=== PATIENT | female | born 1960 | race Hispanic/Latino ===

== ENCOUNTER 2017-02-24 16:55 | Emergency (ER) | payer OTHER ==
[~2017-02-24 16:55] MED LIST: ATOR40TA69 PO; GLYB5TAB8 PO; INSNOV SQ; METF10004 PO; MONT10TA21 PO; OMEP20TA2 PO; SERT100T PO
== END 2017-02-24 17:26 | disposition home or self-care (01) ==
LOC: EDH 16:55
DX: M77.9 Enthesopathy, unspecified (principal); E11.9 Type 2 diabetes mellitus without complications; E78.5 Hyperlipidemia, unspecified; Z88.6 Allergy status to analgesic agent
CPT/HCPCS: 99281

== ENCOUNTER 2017-11-24 09:34 | Emergency (ER) | payer OTHER ==
[~2017-11-24 09:34] MED LIST changes: +METF-446 PO; -METF10004 PO
[2017-11-24 09:57] LABS: BASOPHILS % (AUTO) 0.9 % (0.0-5.0); EOSINOPHILS % (AUTO) 0.9 % (0.0-8.0); HEMATOCRIT 37.8 % (36-48); LYMPHOCYTES % (AUTO) 44.5 % (21.0-51.0); MEAN CORPUSCULAR HEMOGLOBIN 27.1 pg (27.0-33.0); MEAN CORPUSCULAR HGB CONC 33.3 g/dL (32.0-36.0); MEAN CORPUSCULAR VOLUME 81.5 fL (79-99); MONOCYTES % (AUTO) 6.9 % (3.0-13.0); NEUTROPHILS % (AUTO) 46.8 % (40.0-77.0); PLATELET COUNT (AUTO) 261 K/uL (130-400); RED BLOOD CELL COUNT(AUTO) 4.64 MIL/uL (4.00-5.50); RED CELL DISTRIBUTION WIDTH 14.6 % (11.0-15.5); WHITE BLOOD COUNT (AUTO) 10.7 K/uL (4.8-10.8)
[2017-11-24 10:06] LABS: CREATININE 0.8 mg/dL (0.5-1.5); POTASSIUM 4.8 mmol/L (3.5-5.1)
[2017-11-24 10:10] LABS: ALBUMIN 3.3 g/dL (3.5-5.0); BILIRUBIN,TOTAL 0.3 mg/dL (0.2-1.0); TOTAL PROTEIN, SERUM 7.9 g/dL (6.0-8.3)
[2017-11-24] MEDS ORDERED: MAGNESIUM 2GM PREMIX 50ML 50 ML IV ONE (13:43)
== END 2017-11-24 16:02 | disposition home or self-care (01) ==
LOC: EDH 09:34
DX: R07.9 Chest pain, unspecified (principal); E83.42 Hypomagnesemia; E78.5 Hyperlipidemia, unspecified; E11.9 Type 2 diabetes mellitus without complications; I25.10 Atherosclerotic heart disease of native coronary artery without angina pectoris; E66.9 Obesity, unspecified; Z68.41 Body mass index [BMI] 40.0-44.9, adult; Z88.6 Allergy status to analgesic agent; Z90.49 Acquired absence of other specified parts of digestive tract; Z90.710 Acquired absence of both cervix and uterus; Z98.890 Other specified postprocedural states
CPT/HCPCS: 36415; 71045; 80053; 83735; 84484; 85025; 85378; 93005; 93970; 96365; 96366; 99291; J3475

== ENCOUNTER 2018-09-12 14:44 | Emergency (ER) | payer OTHER ==
[2018-09-12 15:06] LABS: APPEARANCE,URINE Clear (CLEAR); BILIRUBIN,URINE Negative (NEGATIVE); COLOR,URINE Yellow (YELLOW); GLUCOSE, URINE (UA) Negative (NEGATIVE); KETONES,URINE Negative (NEGATIVE); LEUKOCYTE ESTERASE ,URINE Trace (NEGATIVE); NITRATE,URINE Negative (NEGATIVE); OCCULT BLOOD,URINE Negative (NEGATIVE); PH,URINE 5.5 (5.0-8.0); PROTEIN,URINE Negative (NEGATIVE)
[2018-09-12] MEDS ORDERED: ONDANSETRON HCL 4 MG/2 ML VIAL ONE (15:08)
[2018-09-12] MEDS ORDERED: SODIUM CHLORIDE 0.9% 1000ML 1,000 ML IV ONE (15:08)
[2018-09-12] MEDS ORDERED: KETOROLAC TROMETHAMINE 30MG/ML ONE (15:09)
[2018-09-12 15:12] LABS: BASOPHILS % (AUTO) 0.8 % (0.0-5.0); EOSINOPHILS % (AUTO) 0.5 % (0.0-8.0); HEMATOCRIT 42.4 % (36-48); LYMPHOCYTES % (AUTO) 33.9 % (21.0-51.0); MEAN CORPUSCULAR HEMOGLOBIN 26.2 pg (27.0-33.0); MEAN CORPUSCULAR HGB CONC 33.2 g/dL (32.0-36.0); MEAN CORPUSCULAR VOLUME 78.9 fL (79-99); MONOCYTES % (AUTO) 6.3 % (3.0-13.0); NEUTROPHILS % (AUTO) 58.5 % (40.0-77.0); NUCLEATED RED BLOOD CELLS 0.1 % (0.0-0.19); PLATELET COUNT (AUTO) 212 K/uL (130-400); RED BLOOD CELL COUNT(AUTO) 5.37 MIL/uL (4.00-5.50); RED CELL DISTRIBUTION WIDTH 16.4 % (11.0-15.5); WHITE BLOOD COUNT (AUTO) 11.7 K/uL (4.8-10.8)
[2018-09-12 15:22] LABS: BACTERIA,URINE Few /HPF (None Seen); RBC,URINE 0-1 /HPF (0-1); SQUAMOUS EPITHELIAL CELL,UR Few /HPF (0-2)
[2018-09-12 15:24] LABS: CREATININE 0.9 mg/dL (0.5-1.5); POTASSIUM 4.1 mmol/L (3.5-5.1)
[2018-09-12 15:28] LABS: ALBUMIN 3.7 g/dL (3.5-5.0); BILIRUBIN,TOTAL 0.4 mg/dL (0.2-1.0)
[2018-09-12] MEDS ORDERED: HYOSCYAMINE SULFATE 0.125 MG TAB.SUBL SL ONE (16:05)
[2018-09-12] MEDS ORDERED: LEVOFLOXACIN 500 MG TABLET ONE (16:10)
== END 2018-09-12 17:50 | disposition home or self-care (01) ==
LOC: EDH 14:44
DX: A09 Infectious gastroenteritis and colitis, unspecified (principal); N39.0 Urinary tract infection, site not specified; E86.0 Dehydration; E11.65 Type 2 diabetes mellitus with hyperglycemia; E78.5 Hyperlipidemia, unspecified; I25.10 Atherosclerotic heart disease of native coronary artery without angina pectoris; Z79.4 Long term (current) use of insulin; Z88.6 Allergy status to analgesic agent
CPT/HCPCS: 36415; 71045; 74176; 80053; 81001; 82150; 82550; 83690; 84484; 85025; 87088; 93005; 96361; 96374; 96375; 99285; J1885; J2405; J7030

== ENCOUNTER 2021-11-18 16:35 | Emergency (ER) | payer OTHER ==
[~2021-11-18] VITALS: Ht 152.4 cm; Wt 113.4 kg
[2021-11-18 17:16] LABS: BASOPHILS % (AUTO) 0.2 % (0.0-5.0); EOSINOPHILS % (AUTO) 0.1 % (0.0-8.0); HEMATOCRIT 37.6 % (36-48); LYMPHOCYTES % (AUTO) 31.2 % (21.0-51.0); MEAN CORPUSCULAR HEMOGLOBIN 25.2 pg (27.0-33.0); MEAN CORPUSCULAR HGB CONC 31.6 g/dL (32.0-36.0); MEAN CORPUSCULAR VOLUME 79.7 fL (79-99); MONOCYTES % (AUTO) 8.1 % (3.0-13.0); NEUTROPHILS % (AUTO) 59.8 % (40.0-77.0); PLATELET COUNT (AUTO) 207 K/uL (130-400); RED BLOOD CELL COUNT(AUTO) 4.72 MIL/uL (4.00-5.50); RED CELL DISTRIBUTION WIDTH 15.9 % (11.0-15.5); WHITE BLOOD COUNT (AUTO) 9.3 K/uL (4.8-10.8)
[2021-11-18 17:28] LABS: INR 0.96 (0.85-1.15); PROTHROMBIN TIME 10.5 SEC (9.6-11.6)
[2021-11-18 17:31] LABS: TOTAL PROTEIN, SERUM 7.3 g/dL (6.0-8.3)
[2021-11-18 17:49] LABS: B-TYPE NATRIURETIC PEPTIDE 30 pg/mL (0-100)
[2021-11-18] MEDS ORDERED: LEVEMIR SQ (20:55)
[2021-11-18] MEDS ORDERED: LISINOPRIL PO (20:55)
[2021-11-18] MEDS ORDERED: AEC81 PO (20:55)
[2021-11-18] MEDS ORDERED: NOVOLOG SQ (20:55)
[2021-11-18] MEDS ORDERED: JANUMET PO (20:55)
[2021-11-18] MEDS ORDERED: IBUP-1493 PO (22:18)
[2021-11-18 22:54] VITALS: BP 116/56
== END 2021-11-18 23:01 | disposition home or self-care (01) ==
LOC: EDH 16:35
DX: R07.89 Other chest pain (principal); R42 Dizziness and giddiness; R53.1 Weakness; E11.9 Type 2 diabetes mellitus without complications; E78.00 Pure hypercholesterolemia, unspecified; I10 Essential (primary) hypertension; I25.10 Atherosclerotic heart disease of native coronary artery without angina pectoris; Z88.5 Allergy status to narcotic agent; Z79.4 Long term (current) use of insulin; Z79.82 Long term (current) use of aspirin; Z79.899 Other long term (current) drug therapy
CPT/HCPCS: 36415; 71045; 80053; 82948; 83880; 84484; 85025; 85378; 85610; 93005

== ENCOUNTER 2024-07-03 08:22 | Inpatient (IN) | payer OTHER ==
[~2024-07-03] VITALS: Ht 152.4 cm; Wt 118.4 kg
[~2024-07-03 08:22] MED LIST changes: +AEC81 PO; +IBUP-1493 PO; +JANUMET PO; +LEVEMIR SQ; +LISINOPRIL PO; +MONT-47 PO; -MONT10TA21 PO; +NOVOLOG SQ
[2024-07-03] MEDS: 0.9%NACL 1000ML 1,000 ML IV ONE (08:29)
[2024-07-03] MEDS: acetaMINOPHEN 500 MG TABLET PO ONE (08:30)
--- NOTE | 2024-07-03 08:45 | ERN ---
General Chief Complaint: Flank Pain Stated Complaint: BILATERAL FLANK PAIN, FREQUENCY Time Seen by MD: 08:23 Source: patient History of Present Illness Initial Comments Patient is a 63-year-old female coming in complaining of lower back pain. States that she was diagnosed with a UTI last week has been taking medication from [place]. States that now she feels as if the UTI as extending to her lower back. She also states that she has been having fever and chills Allergies: Coded Allergies: codeine (Unverified Allergy, Unknown, 04/22/16) Home Meds Active Scripts Ibuprofen (Motrin/Advil) 800 Mg Tab, 800 MG PO TIDP PRN for PAIN, #30 TAB Prov:SWATI MUJICA MD 11/18/21 Reported Medications [Novolog] No Conflict Check, SQ 11/18/21 [Levemir] No Conflict Check, SQ 11/18/21 [Janumet] No Conflict Check, PO 11/18/21 Aspirin (ASPIRIN 81 MG ECTAB) 81 Mg Ectab, 81 MG PO DAILY, TAB.EC 11/18/21 [Lisinopril] No Conflict Check, PO 11/18/21 Montelukast Sodium (Singulair) 10 Mg Tablet, 10 MG PO DAILY, TAB 04/22/16 Sertraline HCl (Zoloft) 100 Mg Tablet, 100 MG PO DAILY, TAB 04/22/16 Atorvastatin Calcium (LIPITOR) 40 Mg Tablet, 40 MG PO AM, TAB 04/22/16 Omeprazole Magnesium (Prilosec Otc) 20 Mg Tablet.dr, 20 MG PO DAILY, TAB 04/22/16 Insulin Aspart (Novolog) 100 Units/Ml Inj, 20 UNITS SQ BID, ML 04/22/16 Glyburide (Glyburide) 5 Mg Tablet, 5 MG PO BID, TAB 04/22/16 Metformin HCl (Metformin HCl) 1,000 Mg Tablet, 1000 MG PO BID, TAB 04/22/16 Past Medical History Past Medical History: Diabetes-Type II Past Surgical History: Hysterectomy, Family History Family History: CAD, HTN Social History Social History: Negative, Lives with family ROS Dictation CONSTITUTIONAL: No chills, fever, no weakness, no diaphoresis, malaise. HEAD/FACE: No signs of trauma. EENT: No eye pain, no blurred vision, no tearing, no double vision, no ear candice n, no ear discharge, no nose pain, no nasal congestion, no throat pain, no throat swelling, no mouth pain. RESPIRATORY: No cough, no orthopnea, no SOB, no stridor, no wheezing. CARDIOVASCULAR: No chest pain, no edema, no palpitations, no syncope. GASTROINTESTINAL/ABDOMINAL: No abdominal pain, no constipation, no diarrhea, no nausea, no vomiting. GENITOURINARY: No abnormal discharge, no dysuria, no frequent urination, no hematuria. No complaints of pain in the genitals. MUSCULOSKELETAL: back pain, no gout, no joint pain, no joint swelling, no muscle pain, no muscle stiffness, no neck pain. INTEGUMENTARY: No change in color, no change in hair/nails, no dryness, no lesion, no lumps, no rash. NEUROLOGICAL/PSYCH: No anxiety, not depressed, no emotional problem, no headache, no numbness, no pre-existing deficit, no history of seizures, no tremors, no weakness. HEMATOLOGIC/LYMPHATIC: Not anemic, no history of blood clots, no apparent bleeding, no bruising, glands not swollen. All Systems Negative, Except as Noted. Physical Exam Physical Exam Dictation VITAL SIGNS: Reviewed. GENERAL APPEARANCE: Alert, oriented x3, no acute distress, obese. HEAD AND FACE: Non-traumatic. EYES: PERRL, pink conjunctivas, eyelid no trauma, anterior chamber clear. EARS: Pinnas intact and no signs of trauma or erythema. Ear canals clear and no discharge. TMs no erythema. NOSE: No discharge, no bleeding. OROPHARYNX: Mouth normal, teeth no caries, tongue pink. Pharynx clear, no e rythema. Tonsils no exudates, no abscesses noted. Mucous membrane moist. NECK: Supple, non-tender, no thyromegaly, no masses, no JVD, no bruits. BREAST: Deferred. CHEST: No tenderness, no crepitus, no paradoxical movement, no retractions. LUNGS: Clear, well-ventilated, symmetric, no rales, no wheezing, no rhonchi, no stridor, good breath sounds bilaterally. HEART: Regular rate, regular rhythm, no murmur, no gallops. VASCULAR: No peripheral edema. ABDOMEN: Soft, positive bowel sounds, nondistended, no guarding, nontender, no rebound, no masses no hepatomegaly, no splenomegaly, no Monroe's sign, no hernias. Bilateral CVA angle tenderness RECTAL: Deferred. GENITAL: Deferred. NEUROLOGICAL: Normal speech, gross motor function intact, gross sensory function intact. MUSCULOSKELETAL: Neck nontender, full range of motion, back nontender, full range of motion. EXTREMITIES: Nontender, full range of motion. SKIN: Color pink, dry, no turgor, no rash, no lacerations, no abrasions, no contusions. LYMPHATICS: Deferred. Results Laboratory and Microbiology Lab and Micro Result Laboratory Tests Test 07/03/24 08:50 07/03/24 10:28 White Blood Count 18.0 K/uL (4.8-10.8) H Red Blood Count 5.22 MIL/uL (4.00-5.50) Hemoglobin 12.9 g/dL (12.0-16.0) Hematocrit 41.2 % (36-48) Mean Corpuscular Volume 78.9 fL (79-99) L Mean Corpuscular Hemoglobin 24.7 pg (27.0-33.0) L Mean Corpuscular Hemoglobin Concent 31.3 g/dL (32.0-36.0) L Red Cell Distribution Width 15.7 % (11.0-15.5) H Platelet Count 260 K/uL (130-400) Mean Platelet Volume 11.3 fL (7.5-10.5) H Immature Granulocyte % (Auto) 0.9 % (0-1) Neutrophils (%) (Auto) 84.7 % (40.0-77.0) H Lymphocytes (%) (Auto) 6.1 % (21.0-51.0) L Monocytes (%) (Auto) 7.8 % (3.0-13.0) Eosinophils (%) (Auto) 0.3 % (0.0-8.0) Basophils (%) (Auto) 0.2 % (0.0-5.0) Neutrophils # (Auto) 15.2 K/uL (1.8-7.7) H Lymphocytes # (Auto) 1.1 K/uL (1.0-4.8) Monocytes # (Auto) 1.4 K/uL (0.1-1.0) H Eosinophils # (Auto) 0.05 K/uL (0.00-0.70) Basophils # (Auto) 0.03 K/uL (0.00-0.20) Absolute Immature Granulocyte (auto 0.16 K/uL (0-1) Nucleated Red Blood Cells 0.0 % (0.0-0.19) White Cell Morphology Comment See comments Red Blood Cell Morphology See comments Sodium Level 134 mmol/L (136-145) L Potassium Level 4.3 mmol/L (3.5-5.1) Chloride Level 97 mmol/L (101-111) L Carbon Dioxide Level 30 mmol/L (21-32) Blood Urea Nitrogen 12 mg/dL (7-18) Creatinine 1.2 mg/dL (0.5-1.0) H Glomerular Filtration Rate Calc 52 mL/min (>90) Random Glucose 354 mg/dL (70-105) H Lactic Acid Level 2.8 mmol/L (0.8-2.5) H Total Calcium 8.7 mg/dL (8.5-10.1) Total Creatine Kinase 46 U/L (21-232) # Troponin I High Sensitivity 4 ng/L (4-50) Urine Color YELLOW (YELLOW) Urine Appearance CLOUDY (CLEAR) H Urine pH 7.0 (5.0-8.0) Urine Specific [place] 1.021 (1.001-1.031) Urine Protein 50 mg/dL (NEGATIVE) H Urine Glucose (UA) >=1000 mg/dL (NEGATIVE) H Urine Ketones 20 mg/dL (NEGATIVE) H Urine Occult Blood SMALL (NEGATIVE) H Urine Nitrate 2+ (NEGATIVE) H Urine Bilirubin NEGATIVE mg/dL (NEGATIVE) Urine Urobilinogen 4.0 mg/dL (0.2-1.0) H Urine Leukocyte Esterase 500 Thomas/uL (NEGATIVE) H Urine RBC 11-25 /HPF (0-1) H Urine WBC TNTC /HPF (0-1) H Urine WBC Clumps (Auto) MOD /HPF (0-1) Urine Squamous Epithelial Cells FEW /HPF (0-2) Urine Bacteria MANY /HPF (None Seen) Urine Hyaline Casts 2-5 /LPF (0-1 /LPF) H Labs Reviewed?: Yes EKG/XRAY/US/CT/MRI CT Scan Comment [facility] [address] [place] [address] IMAGING REPORT Signed PATIENT: RADHA WASSERMAN MR#: [id number] : 1960 SEX: F AGE: 63 LOCATION: [facility] ORDER 6 STATUS: REG ER REPORT#: [id number] SERVICE 5 REASON: flank pain ORDERING PHYSICIAN: AYANA DELEON MD PROCEDURE: ABD PEL WO - CT ABDOMEN/PELVIS W/O CONTRAST Exam Type: CT ABDOMEN/PELVIS W/O CONTRAST Clinical Information: flank pain Comparison: None CT Dose Index (CTDI): 10.20 mGy Dose Length Product (DLP): 530.00 total mGy-cm PROTOCOL: Routine noncontrast helical scanning of the abdomen and pelvis was performed at 5mm collimation. Findings: No evidence of nephro or ureterolithiasis is found. No hydronephrosis or ureteral dilatation is seen. Simple cyst left kidney. The lung bases are clear. The stomach is unremarkable. It shows no wall thickening. No gross ulceration is seen. It is not overly distended. There are no surrounding inflammatory changes. No wall lesions are identified to suggest cancer. The spleen is unremarkable. It is not enlarged. The pancreas shows normal anatomy. It is not fatty replaced. It shows no lesions. The pancreatic duct is not dilated. The gallbladder is unremarkable. It shows no cholelithiasis. The gallbladder wall is normal in thickness. There is no pericholecystic fluid. The is no acute or chronic inflammation noted. The adrenal glands are unremarkable. There is no enlargement. No lesions are noted. The liver is unremarkable. It shows no focal masses. The appendix is unremarkable. It shows no evidence of inflammation. No appendicolith is seen. The small bowel is unremarkable. There is no evidence of dilatation to suggest obstruction. No evidence of adynamic ileus is seen. There is no small bowel wall thickening to suggest enteritis. There is diverticulosis. There is no evidence of acute inflammation to suggest diverticulitis. The colon is otherwise unremarkable. The urinary bladder is unremarkable. There is no wall thickening to suggest tumor or inflammation. There are no intraluminal calculi. There are no diverticula. There is no evidence of chronic bladder outlet obstruction. There is no evidence of urinary bladder distention to suggest urinary retention. The other pelvic structures are unremarkable. The bony and vascular structures are unremarkable for the patient's age. IMPRESSION: NEGATIVE CT SCAN OF THE ABDOMEN AND PELVIS. NO RENAL STONES. NO ACUTE PATHOLOGY OR INFLAMMATION SEEN. This study was performed using dose reduction techniques to include automated exposure control and/or adjustment of the mA and/or kV according to patient size. DICTATED BY: BOYD RIOS MD DATE: 07/03/24 0958 ELECTRONICALLY SIGNED BY: BOYD RIOS MD DATE: 07/03/24 1002 MDM MDM: Differential diagnosis: Bilateral flank pain, UTI, sepsis, pyelonephritis, Rationale: Tests considered and ordered secondary to shared decision making include: labs, ECG and radiology Previous outside records reviewed: Old ER visits. Risk of complication and/or morbidity or mortality of patient management: None Medications-Per medication reconciliation Need for hospitalization: Patient does meet criteria for hospitalization. Need for emergency major/minor surgery: No There are no social concerns with this patient. Prescription drug management Prescriptions will include symptomatic care Patient's prior external medical records from other ER visits were reviewed by me as indicated. Prior testing and results from previous visits were reviewed. Prior tests were taken into account with medical decision making and resource utilization, independent historian/historians were used to obtain complete medical history. I independently interpreted the test that were performed, results were reviewed by me and considered findings on radiology if ordered. Medical management and examination interpretation discussions were had by me with other qualified healthcare professionals as indicated for the patient's care.Patient will be admitted under the care of hospitalist group. ED Course Orders Procedure Category Date Status Time Cbc With Differential LAB 07/03/24 Complete 08:25 Urinalysis LAB 07/03/24 Complete W/Microscopic 08:25 0.9%Nacl 1000ml (Ns PHA 07/03/24 Complete 1000ml) 08:30 Acetaminophen 500mg PHA 07/03/24 Complete Tab (Tylenol 500mg T 08:30 Ct Abdomen/Pelvis W/O CT 07/03/24 Resulted Contrast 08:26 Blood Cult IVORY 07/03/24 In Process 08:28 Culture Urine IVORY 07/03/24 In Process 08:28 0.9%Nacl 1000ml (Ns PHA 07/03/24 In Process 1000ml) 08:30 Creatine Kinase, Total LAB 07/03/24 Complete 08:28 Troponin I High LAB 07/03/24 Complete Sensitivity 08:28 Lactic Acid LAB 07/03/24 Complete 08:28 Basic Metabolic Panel LAB 07/03/24 Complete 08:50 Ceftriaxone 1g Vial PHA 07/03/24 Complete (Rocephine 1g Inj) 10:30 Current Medications Medications (Trade) Dose Ordered Sig/Rich Route PRN Reason Start Time Stop Time Status Last Admin Dose Admin Acetaminophen (TYLenol 500MG TAB) 1,000 mg ONCE ONCE PO 07/03/24 08:30 07/03/24 08:31 DC 07/03/24 08:30 Ceftriaxone Sodium (ROCEphine 1G INJ) 1 gm ONCE ONCE IVPB 07/03/24 10:30 07/03/24 10:37 DC 07/03/24 10:46 Sodium Chloride 1,000 ml @ 0 mls/hr ONCE ONCE IV 07/03/24 08:30 07/03/24 08:31 DC 07/03/24 08:29 Sodium Chloride 3,402 ml @ 1,134 mls/hr ONCE ONCE IV 07/03/24 08:30 07/03/24 11:29 07/03/24 09:37 Vital Signs Date Time Temp Pulse Resp B/P (MAP) Pulse Ox O2 Delivery O2 Flow Rate FiO2 07/03/24 10:53 99.7 94 14 121/67 95 Room Air* 0 21 07/03/24 09:40 101.7 Room Air* 0 21 07/03/24 08:30 101.7 07/03/24 08:23 101.7 110 22 167/67 97 Room Air 0 Critical Care Note Comments Critical Care Procedure Note Authorized and Performed by: me Total critical care time: Approximately 36 minutes Due to a high probability of clinically significant, life threatening deterioration, the patient required my highest level of preparedness to intervene emergently and I personally spent this critical care time directly and personally managing the patient. This critical care time included obtaining a history; examining the patient; pulse oximetry; ordering and review of studies; arranging urgent treatment with development of a management plan; evaluation of patient's response to treatment; frequent reassessment; and, discussions with other providers. This critical care time was performed to assess and manage the high probability of imminent, life-threatening deterioration that could result in multi-organ failure. It was exclusive of separately billable procedures and treating other patients and teaching time. Please see MDM section and the rest of the note for further information on patient assessment and treatment. DX & DISP Disposition: Inpatient Decision to Admit Time: 11:16 Departure Impression: Primary Impression: Sepsis Additional Impression: UTI (urinary tract infection) Condition: Stable Referrals: EMIGDIO OLMEDO (PCP) AYANA DELEON MD July 03, 2024 08:45
[2024-07-03 09:05] LABS: BASOPHILS # (AUTO) 0.03 K/uL (0.00-0.20); BASOPHILS % (AUTO) 0.2 % (0.0-5.0); EOSINOPHILS # (AUTO) 0.05 K/uL (0.00-0.70); EOSINOPHILS % (AUTO) 0.3 % (0.0-8.0); HEMATOCRIT 41.2 % (36-48); IMMATURE GRANULOCYTE ABSOLUTE 0.16 K/uL (0-1); LYMPHOCYTES # (AUTO) 1.1 K/uL (1.0-4.8); LYMPHOCYTES % (AUTO) 6.1 % (21.0-51.0); MEAN CORPUSCULAR HEMOGLOBIN 24.7 pg (27.0-33.0); MEAN CORPUSCULAR HGB CONC 31.3 g/dL (32.0-36.0); MEAN CORPUSCULAR VOLUME 78.9 fL (79-99); MONOCYTES # (AUTO) 1.4 K/uL (0.1-1.0); MONOCYTES % (AUTO) 7.8 % (3.0-13.0); NEUTROPHILS # (AUTO) 15.2 K/uL (1.8-7.7); NEUTROPHILS % (AUTO) 84.7 % (40.0-77.0); PLATELET COUNT (AUTO) 260 K/uL (130-400); RED BLOOD CELL COUNT(AUTO) 5.22 MIL/uL (4.00-5.50); RED CELL DISTRIBUTION WIDTH 15.7 % (11.0-15.5)
[2024-07-03 09:18] LABS: CREATININE 1.2 mg/dL (0.5-1.0); POTASSIUM 4.3 mmol/L (3.5-5.1)
[2024-07-03] MEDS: [UNRECOGNIZED DRUG - OTHER] IV ONE (09:37)
--- NOTE | 2024-07-03 10:02 | HMCIMG ---
Exam Type: CT ABDOMEN/PELVIS W/O CONTRAST Clinical Information: flank pain Comparison: None CT Dose Index (CTDI): 10.20 mGy Dose Length Product (DLP): 530.00 total mGy-cm PROTOCOL: Routine noncontrast helical scanning of the abdomen and pelvis was performed at 5mm collimation. Findings: No evidence of nephro or ureterolithiasis is found. No hydronephrosis or ureteral dilatation is seen. Simple cyst left kidney. The lung bases are clear. The stomach is unremarkable. It shows no wall thickening. No gross ulceration is seen. It is not overly distended. There are no surrounding inflammatory changes. No wall lesions are identified to suggest cancer. The spleen is unremarkable. It is not enlarged. The pancreas shows normal anatomy. It is not fatty replaced. It shows no lesions. The pancreatic duct is not dilated. The gallbladder is unremarkable. It shows no cholelithiasis. The gallbladder wall is normal in thickness. There is no pericholecystic fluid. The is no acute or chronic inflammation noted. The adrenal glands are unremarkable. There is no enlargement. No lesions are noted. The liver is unremarkable. It shows no focal masses. The appendix is unremarkable. It shows no evidence of inflammation. No appendicolith is seen. The small bowel is unremarkable. There is no evidence of dilatation to suggest obstruction. No evidence of adynamic ileus is seen. There is no small bowel wall thickening to suggest enteritis. There is diverticulosis. There is no evidence of acute inflammation to suggest diverticulitis. The colon is otherwise unremarkable. The urinary bladder is unremarkable. There is no wall thickening to suggest tumor or inflammation. There are no intraluminal calculi. There are no diverticula. There is no evidence of chronic bladder outlet obstruction. There is no evidence of urinary bladder distention to suggest urinary retention. The other pelvic structures are unremarkable. The bony and vascular structures are unremarkable for the patient's age. IMPRESSION: NEGATIVE CT SCAN OF THE ABDOMEN AND PELVIS. NO RENAL STONES. NO ACUTE PATHOLOGY OR INFLAMMATION SEEN. This study was performed using dose reduction techniques to include automated exposure control and/or adjustment of the mA and/or kV according to patient size.
[2024-07-03 10:46] LABS: APPEARANCE,URINE CLOUDY (CLEAR); BILIRUBIN,URINE NEGATIVE (NEGATIVE); COLOR,URINE YELLOW (YELLOW); GLUCOSE, URINE (UA) >=1000 mg/dL (NEGATIVE); KETONES,URINE 20 mg/dL (NEGATIVE); LEUKOCYTE ESTERASE ,URINE 500 Leu/uL (NEGATIVE); NITRATE,URINE 2+ (NEGATIVE); OCCULT BLOOD,URINE SMALL (NEGATIVE); PROTEIN,URINE 50 mg/dL (NEGATIVE)
[2024-07-03] MEDS: cefTRIAXone 1G VIAL IVPB ONE (10:46)
[2024-07-03 10:53] LABS: BACTERIA,URINE MANY /HPF (None Seen); MUCUS,URINE RARE LPF (None Seen); SQUAMOUS EPITHELIAL CELL,UR FEW /HPF (0-2); WBC CLUMP MOD /HPF (0-1); WBC,URINE TNTC /HPF (0-1)
--- NOTE | 2024-07-03 11:26 | HP ---
[facility] HISTORY AND PHYSICAL Date of Service: July 03, 2024 Time of Service: 11:19 HISTORY OF PRESENT ILLNESS: [ ] admission date: 07/03/24 PCP: Crhis Orellana This is a 63 female that presents in ER with bilateral flank pain associated with fever and chills. Onset three days patient reports having UTI symptoms on Monday burning cessation urgency and frequency. severity: severe state 8/10 on pain scale, aggravating factors: none, alleviating factor: none she reports taking Tylenol for fevers. During the course ER stay sepsis alert was initiated patient received IV fluids and IV V Rocephin. Labs WBCs 18.0 neutrophils 84. 7 CRP 189.00 sodium 134, chloride 97 creatinine 1.2 lactic acid 2.8 repeat lactic acid 1.4 Vital signs on arrival: Temperature 101.7� pulse [address] abdomen pelvis was negative: NO RENAL STONES. NO ACUTE PATHOLOGY OR INFLAMMATION SEEN. Urinalysis; urine cloudy leukocyte esterase 500 RBC 11- Patient was seen in ED 16 patient appears acutely ill nontoxic. She denied chest pain or shortness for breath. All questions addressed REVIEW OF SYSTEMS A14 point RS was obtained all relevant positive documented otherwise ROS negative PAST MEDICAL HISTORY: [ ] Kidney stones, diabetes type on insulin, obesity, PAST SURGICAL HISTORY: [ ] Hysterectomy with left side ovary removed X2 PAST SOCIAL HISTORY: [ ] Denies smoking tobacco products and alcohol use. Lives alone FAMILY HISTORY: [ ] Noncontributory Coded Allergies: codeine (Unverified Allergy, Unknown, 04/22/16) PHYSICAL EXAM GENERAL APPEARANCE: The patient is awake, alert, and oriented, in no acute cardiopulmonary distress. NEUROLOGICAL: Cranial nerves II-XII grossly intact. Motor is 5/5 in bilateral upper and lower extremities proximal to distal. No sensory deficits. HEENT: Face is symmetric. Pupils are equal and reactive. Extraocular movements are intact. NECK: Supple. No JVD. No thyromegaly. No submental, submandibular, pre- /postauricular, occipital or supraclavicular lymphadenopathy. CHEST: Normal chest expansion. No Telemetry. LUNGS: Absence of any rales, rhonchi or any wheezing. CARDIOVASCULAR: Regular. S1 and S2 normal. No appreciable rubs, murmurs or gallops. ABDOMEN: Soft, nontender, and nondistended. There is no rebound, voluntary guarding, or rigidity. : Deferred. No [place]. EXTREMITIES: Non-edematous and not cyanotic. No clubbing. Good capillary refill. SKIN: No skin breakdown. Vital Sign (Last 24 Hours) 07/03/24 10:53 Temp 99.7 Pulse 94 Resp 14 B/P (MAP) 121/67 Pulse Ox 95 O2 Delivery Room Air* O2 Flow Rate 0 FiO2 21 LABS: Laboratory: Test 07/03/24 10:28 07/03/24 08:50 Range/Units Urine Color YELLOW YELLOW Urine Appearance CLOUDY H CLEAR Urine pH 7.0 5.0-8.0 Urine Specific [place] 1.021 1.001-1.031 Urine Protein 50 H NEGATIVE mg/dL Urine Glucose (UA) >=1000 H NEGATIVE mg/dL Urine Ketones 20 H NEGATIVE mg/dL Urine Occult Blood SMALL H NEGATIVE Urine Nitrate 2+ H NEGATIVE Urine Bilirubin NEGATIVE NEGATIVE mg/dL Urine Urobilinogen 4.0 H 0.2-1.0 mg/dL Urine Leukocyte Esterase 500 H NEGATIVE Thomas/uL Urine RBC 11-25 H 0-1 /HPF Urine WBC TNTC H 0-1 /HPF Urine WBC Clumps (Auto) MOD 0-1 /HPF Urine Squamous Epithelial Cells FEW 0-2 /HPF Urine Bacteria MANY None Seen /HPF Urine Hyaline Casts 2-5 H 0-1 /LPF /LPF White Blood Count 18.0 H 4.8-10.8 K/uL Red Blood Count 5.22 4.00-5.50 MIL/uL Hemoglobin 12.9 12.0-16.0 g/dL Hematocrit 41.2 36-48 % Mean Corpuscular Volume 78.9 L 79-99 fL Mean Corpuscular Hemoglobin 24.7 L 27.0-33.0 pg Mean Corpuscular Hemoglobin Concent 31.3 L 32.0-36.0 g/dL Red Cell Distribution Width 15.7 H 11.0-15.5 % Platelet Count 260 130-400 K/uL Mean Platelet Volume 11.3 H 7.5-10.5 fL Immature Granulocyte % (Auto) 0.9 0-1 % Neutrophils (%) (Auto) 84.7 H 40.0-77.0 % Lymphocytes (%) (Auto) 6.1 L 21.0-51.0 % Monocytes (%) (Auto) 7.8 3.0-13.0 % Eosinophils (%) (Auto) 0.3 0.0-8.0 % Basophils (%) (Auto) 0.2 0.0-5.0 % Neutrophils # (Auto) 15.2 H 1.8-7.7 K/uL Lymphocytes # (Auto) 1.1 1.0-4.8 K/uL Monocytes # (Auto) 1.4 H 0.1-1.0 K/uL Eosinophils # (Auto) 0.05 0.00-0.70 K/uL Basophils # (Auto) 0.03 0.00-0.20 K/uL Absolute Immature Granulocyte (auto 0.16 0-1 K/uL Nucleated Red Blood Cells 0.0 0.0-0.19 % White Cell Morphology Comment See comments Red Blood Cell Morphology See comments Sodium Level 134 L 136-145 mmol/L Potassium Level 4.3 3.5-5.1 mmol/L Chloride Level 97 L 101-111 mmol/L Carbon Dioxide Level 30 21-32 mmol/L Blood Urea Nitrogen 12 7-18 mg/dL Creatinine 1.2 H 0.5-1.0 mg/dL Glomerular Filtration Rate Calc 52 >90 mL/min Random Glucose 354 H 70-105 mg/dL Lactic Acid Level 2.8 H 0.8-2.5 mmol/L Total Calcium 8.7 8.5-10.1 mg/dL Total Creatine Kinase 46 # 21-232 U/L Troponin I High Sensitivity 4 4-50 ng/L DIAGNOSTICS / RADIOLOGY: [ ] REASON: flank pain ORDERING PHYSICIAN: AYANA DELEON MD PROCEDURE: ABD PEL WO - CT ABDOMEN/PELVIS W/O CONTRAST Exam Type: CT ABDOMEN/PELVIS W/O CONTRAST Clinical Information: flank pain Comparison: None CT Dose Index (CTDI): 10.20 mGy Dose Length Product (DLP): 530.00 total mGy-cm PROTOCOL: Routine noncontrast helical scanning of the abdomen and pelvis was performed at 5mm collimation. Findings: No evidence of nephro or ureterolithiasis is found. No hydronephrosis or ureteral dilatation is seen. Simple cyst left kidney. The lung bases are clear. The stomach is unremarkable. It shows no wall thickening. No gross ulceration is seen. It is not overly distended. There are no surrounding inflammatory changes. No wall lesions are identified to suggest cancer. The spleen is unremarkable. It is not enlarged. The pancreas shows normal anatomy. It is not fatty replaced. It shows no lesions. The pancreatic duct is not dilated. The gallbladder is unremarkable. It shows no cholelithiasis. The gallbladder wall is normal in thickness. There is no pericholecystic fluid. The is no acute or chronic inflammation noted. The adrenal glands are unremarkable. There is no enlargement. No lesions are noted. The liver is unremarkable. It shows no focal masses. The appendix is unremarkable. It shows no evidence of inflammation. No appendicolith is seen. The small bowel is unremarkable. There is no evidence of dilatation to suggest obstruction. No evidence of adynamic ileus is seen. There is no small bowel wall thickening to suggest enteritis. There is diverticulosis. There is no evidence of acute inflammation to suggest diverticulitis. The colon is otherwise unremarkable. The urinary bladder is unremarkable. There is no wall thickening to suggest tumor or inflammation. There are no intraluminal calculi. There are no diverticula. There is no evidence of chronic bladder outlet obstruction. There is no evidence of urinary bladder distention to suggest urinary retention. The other pelvic structures are unremarkable. The bony and vascular structures are unremarkable for the patient's age. IMPRESSION: NEGATIVE CT SCAN OF THE ABDOMEN AND PELVIS. NO RENAL STONES. NO ACUTE PATHOLOGY OR INFLAMMATION SEEN. ASSESSMENT: sepsis ( Temp:101.7, HR: 110 RR 22, Lactic acid: 2.8 WBC: 18) complicated UTI POA intractable bilateral flank pain POA Adult Morbid obesity POA DM with Hyperglycemia POA electrolytes derangement: hyponatremia, POA MARC: ATN POA PLAN: Admit: PCCU condition:Guarded Status: full code IVF:NA at 75 ml/hr Consultants: Infectious Disease for Abt stewardship recommendations Antibiotics:Zosyn 3.375gm IV every 8 hrs Test: sepsis work up: urine culture, blood cultures Labs cbc, cmp, mag+ A1c ac/hs monitoring with SSRI coverage and long acting Replace electrolytes as needed as per protocol to keep potassium above 4.0 magnesium 2.0. Home medications pending to be reviewed by RN nurse. PRN: MEDICATIONS Tylenol 650 mg po every 4 hrs for fever Zofran 4 mg IV every 6 hrs for n/v Hydralazine 5 mg IV every 4 hrs systolic pressure > 160 bowel regiment: lactulose 20 gm PO BID PRN constipation Pain management: Supportive measures: DVT ppx, GI ppx all questions answered time spent: > 35 min Supervising MD: Dr. Chan PViviane c/chris This document was generated in part using voice recognition software, occasional wrong word or sound alike substitutions may have occurred due to the inherent limitations of voice recognition software. Read the chart carefully and recognize using context, where the substitutions have occurred. Although every effort was made to edit the content, manager demand and typing errors may occur ADVANCED CARE PLANNING 1. Which of the following were discussed? Hospice Care - Yes / No Therapeutic options - Yes / No Advance Directives - Yes / No Other discussions - 2. Discussed with who? 3. Voluntary nature of this service was explained to the patient? Yes / No 4. Amount of time spent - 5. Reviewed by Physician? (if this service was performed by NPP) Yes / No ATTESTATION BY PHYSICIAN I have seen and examined the patient. I reviewed the documentation, medical decision making, and treatment plan as noted by the mid-level provider above. I agree with the findings and plan of care. Martina Benavides MD, [employer]IST July 03, 2024 11:26
[2024-07-03] MEDS ORDERED: hydrALAZine 20MG/ML VIAL IV PRN (11:30)
[2024-07-03] MEDS ORDERED: PoTASSium chloRIDE 20MEQ ER 20 MEQ ERTAB PO PRN (11:30)
[2024-07-03] MEDS ORDERED: PoTASSium chloRIDE 20MEQ/100ML 100 ML IV PRN (11:30)
[2024-07-03] MEDS ORDERED: PoTASSium chl 10% ELIXIR 20MEQ 20 MEQ/15 ML UDCUP PO PRN (11:30)
[2024-07-03] MEDS ORDERED: 0.9%NACL 50ML IV SCH (12:00)
[2024-07-03] MEDS: 0.9%NACL 1000ML 1,000 ML IV SCH (12:25)
[2024-07-03] MEDS: ZOSYN 3.375GM +NS 50ML IVPB SCH (12:25)
[2024-07-03] MEDS: INSULIN humuLIN R 100 UNIT/ML 3ML SQ SCH (12:49)
--- NOTE | 2024-07-03 12:54 | NUR ---
INFECTIOUS DISEASES CONSULT; DR MENDEZ MADE AWARE
--- NOTE | 2024-07-03 13:35 | NUR ---
DR MENDEZ BEDSIDE
[2024-07-03] MEDS: ketOROlac 30MG VIAL (30MG/ML) ONE (13:40)
[2024-07-03] MEDS: ketOROlac 30MG VIAL (30MG/ML) IVP ONE (13:40)
--- NOTE | 2024-07-03 15:20 | NUR ---
DCP: HOME Pt currently lives with brother. Pt denies any insecurities with food, mcfp, and/or utilities. Pt does not have any DME, home health, or provider services. Pt states that she can complete ADLs independently. PCP is Deann Avila at [facility] and also uses [facility] for RX needs. At [place] pt will return home and family can assist with transportation. Addendum: 07/03/24 at 1523 by GLORY MUELLER SS Amended: Links added.
[2024-07-03 18:15] VITALS: BP 157/71; PULSE 67; RESP 19; TEMP 103
--- NOTE | 2024-07-03 18:25 | NUR ---
ORAL TEMP 103.1 ...MEDICATED WITH TYLENOL 650MG PO. REFUSED TO HAVE ICE BAGS PLACED UNDER ARMS AND LEGS, SHE STATED SHE WILL NOT HAVE THAT DONE TO HER. ROOM TEMPERATURE COOLED DOWN. APPLIED BARE HUGGER WITH COOL AIR. WILL CONTINUE TO MONITOR.
[2024-07-03] MEDS: acetaMINOPHEN 325 MG TAB PO PRN (18:26)
[2024-07-03 18:42] VITALS: O2SAT 94
[2024-07-03 20:00] VITALS: BP 102/68; PULSE 75; RESP 20; TEMP 99.7; O2SAT 99
--- NOTE | 2024-07-03 20:23 | CONS ---
INFECTIOUS DISEASE CONSULTATION DATE OF SERVICE: 07/03/2024. REQUESTING PHYSICIAN: Nickie Osborn NP REASON FOR CONSULTATION: Sepsis. HISTORY OF PRESENT ILLNESS: A 63-year-old female with history of obesity, hypertension, nephrolithiasis, and diabetes mellitus, presented to the hospital with a 1-day history of fever, chills, and bilateral flank pain. The patient's T-max in the ER was 101.7. The patient also complains of severe chills and rigors. The patient has dysuria, urinary frequency. No nausea, vomiting, or diarrhea. CT of the abdomen was done which is unremarkable. WBC was 18,000 with a lactic acid of 2.8. Urinalysis showed wbc's too numerous to count and leukocyte esterase of 500. No cough. No hemoptysis. No pleuritic pain. Denies sick contact or recent travels. PAST MEDICAL HISTORY: * Diabetes mellitus. * Hypertension. * Nephrolithiasis. * UTI. * Morbid obesity. PAST SURGICAL HISTORY: * Hysterectomy. * section. ALLERGIES: CODEINE. CURRENT MEDICATIONS: Reviewed. SOCIAL HISTORY: Denies alcohol, tobacco, and illicit drug use. FAMILY HISTORY: Positive for diabetes mellitus. REVIEW OF SYSTEMS: CONSTITUTIONAL: Positive for fever, chills, rigors. No weight loss or night sweats. EYES: No eye pain. No photophobia or diplopia. HENT: No sore throat. No rhinorrhea or earache. NECK: No neck pain or neck swelling. RESPIRATORY: No cough. No hemoptysis or pleuritic pain. CARDIOVASCULAR: No chest pain. No palpitation or orthopnea. GASTROINTESTINAL: Denies nausea, vomiting. Positive for flank pain. GENITOURINARY: Positive for dysuria. No urinary frequency. No hematuria. CENTRAL NERVOUS SYSTEM: No headache, dyspnea, or slurred speech. PSYCHIATRY: No depression, no suicidal ideation. MUSCULOSKELETAL: No joint pain or joint swelling. PHYSICAL EXAMINATION: GENERAL: Elderly female, awake. VITAL SIGNS: Temperature 101.7, pulse 110, respiratory rate 23, blood pressure 167/64. EYES: No icterus. Pupils equal and reactive. HENT: No oral thrush seen. Moist oral mucosa. NECK: Supple. No JVD or thyromegaly. LUNGS: Good air entry. No rales, no rhonchi. CARDIOVASCULAR: S1, S2, regular. No murmur heard. ABDOMEN: Obese, soft. Bowel sound is present. No organomegaly. CENTRAL NERVOUS SYSTEM: Awake, alert, oriented x 3. No focal deficits. SKIN: No rashes, no itchiness. LYMPHATIC: No peripheral lymphadenopathy. BACK: No deformity, no pressure ulcer. LABORATORY DATA: Lactic acid 2.8. Sodium 134, potassium 4.3. BUN 12, creatinine 1.2. WBC 18.0, hemoglobin 12.9, platelets 260. Urinalysis; wbc's too numerous to count, leukocyte esterase of 500. RADIOLOGY: CT of the abdomen unremarkable. ASSESSMENT: A 63-year-old female presenting with fever, bilateral flank pain. CURRENT PROBLEMS: Include: * Possible gram-negative sepsis. * UTI. * Diabetes mellitus. * Hypertension. * Morbid obesity. * Abdominal pain. PLAN: * Continue Zosyn. * Follow up cultures. * Continue pain management. * Continue antiemetics. * Continue antidiabetic. * Continue antihypertensives. * Monitory electrolytes and correct as needed. * Antibiotics will be adjusted when cultures are updated or finalized. Thank you for allowing me to participate in the care of this patient. TID: [id number] RECEIPT: [id number]
[2024-07-04] VITALS (8 sets, daily range): BP systolic 93–121; BP diastolic 55–74; PULSE 60–114; RESP 16–20; TEMP 98.3–99.9; O2SAT 96
[2024-07-04] MEDS: ondanSETRON 4MG INJ IVP PRN (00:06)
[2024-07-04 05:27] LABS: BASOPHILS # (AUTO) 0.04 K/uL (0.00-0.20); BASOPHILS % (AUTO) 0.2 % (0.0-5.0); HEMATOCRIT 35.8 % (36-48); IMMATURE GRANULOCYTE ABSOLUTE 0.13 K/uL (0-1); LYMPHOCYTES # (AUTO) 1.8 K/uL (1.0-4.8); LYMPHOCYTES % (AUTO) 10.7 % (21.0-51.0); MEAN CORPUSCULAR HEMOGLOBIN 24.3 pg (27.0-33.0); MEAN CORPUSCULAR HGB CONC 30.4 g/dL (32.0-36.0); MEAN CORPUSCULAR VOLUME 79.7 fL (79-99); MONOCYTES # (AUTO) 1.5 K/uL (0.1-1.0); MONOCYTES % (AUTO) 8.9 % (3.0-13.0); NEUTROPHILS # (AUTO) 13.1 K/uL (1.8-7.7); NEUTROPHILS % (AUTO) 79.4 % (40.0-77.0); PLATELET COUNT (AUTO) 189 K/uL (130-400); RED BLOOD CELL COUNT(AUTO) 4.49 MIL/uL (4.00-5.50); RED CELL DISTRIBUTION WIDTH 15.9 % (11.0-15.5); WHITE BLOOD COUNT (AUTO) 16.5 K/uL (4.8-10.8)
[2024-07-04 05:41] LABS: ALBUMIN 2.1 g/dL (3.5-5.0); BILIRUBIN,TOTAL 0.5 mg/dL (0.2-1.0); CREATININE 1.1 mg/dL (0.5-1.0); MAGNESIUM 1.5 mg/dL (1.80-2.40); TOTAL PROTEIN, SERUM 6.6 g/dL (6.0-8.3)
[2024-07-04] MEDS: MAGNESIUM 2GM PREMIX 50ML 50 ML IV PRN (06:53)
[2024-07-04] MEDS: FAMOTIDINE 20MG TAB PO SCH (10:02)
[2024-07-04] MEDS ORDERED: DULA3PEN SQ (10:33)
[2024-07-04] MEDS ORDERED: INSU100V37 SQ (10:33)
[2024-07-04] MEDS ORDERED: BUDE10.22 IH (10:33)
[2024-07-04] MEDS ORDERED: PIOG30TA10 PO (10:33)
[2024-07-04] MEDS ORDERED: DICY10 PO (10:33)
--- NOTE | 2024-07-04 12:16 | PN ---
INFECTIOUS DISEASE PROGRESS NOTE Date of Service: July 04, 2024 SUBJECTIVE: This is a 63-year-old female patient who was seen and examined at bedside in room 221. Patient is awake, alert and oriented x3. Stated she is feeling much better this morning. The WBC has trended down to 16.5 today. Patient had a low-grade fever of 100.2 at midnight last night but no fever this morning, current temperature is 98.2�. The preliminary urine culture results is growing Gram-negative rods. We will continue on Zosyn IV and follow up on the final culture results. PHYSICAL EXAM EYES: Anicteric. Pupils equal and reactive. HENT: No oral thrush seen, moist Oral mucosa. NECK: Supple, no JVD or thyromegaly. LUNGS: Good air entry. No rales, no rhonchi. CARDIOVASCULAR: S1, S2 regular. No murmur heard. ABDOMEN: Soft, non tender, bowel sounds present, no organomegaly. CENTRAL NERVOUS SYSTEM: Awake, alert, oriented x 3. SKIN: No rashes, no swelling. LYMPHATICS: No peripheral lymphadenopathy. MUSCULOSKELETAL: No joint swelling, erythema or tenderness. EXTREMITIES: No cyanosis or clubbing. BACK: No deformity, no pressure ulcer. GENITOURINARY: No dysuria or hematuria. Vital Sign (Last 12 Hours) 07/04/24 07/04/24 04:00 08:08 Temp 98.8 98.2 Pulse 76 77 Resp 18 18 B/P (MAP) 107/61 93/55 Pulse Ox 95 94 O2 Delivery Room Air Room Air Intake & Output (last 24hrs) 07/03/24 07/03/24 07/04/24 15:00 23:00 07:00 Intake Total 250.0 ml 800.0 ml Output Total 150 ml 150 ml Balance 100.0 ml 650.0 ml LABS: Laboratory: Test 07/04/24 11:55 07/04/24 05:21 07/03/24 16:32 07/03/24 11:36 Range/Units Whole Blood Glucose 240 H 70-110 MG/DL White Blood Count 16.5 H 4.8-10.8 K/uL Red Blood Count 4.49 4.00-5.50 MIL/uL Hemoglobin 10.9 L 12.0-16.0 g/dL Hematocrit 35.8 L 36-48 % Mean Corpuscular Volume 79.7 79-99 fL Mean Corpuscular Hemoglobin 24.3 L 27.0-33.0 pg Mean Corpuscular Hemoglobin Concent 30.4 L 32.0-36.0 g/dL Red Cell Distribution Width 15.9 H 11.0-15.5 % Platelet Count 189 # 130-400 K/uL Mean Platelet Volume 10.4 7.5-10.5 fL Immature Granulocyte % (Auto) 0.8 0-1 % Neutrophils (%) (Auto) 79.4 H 40.0-77.0 % Lymphocytes (%) (Auto) 10.7 L 21.0-51.0 % Monocytes (%) (Auto) 8.9 3.0-13.0 % Eosinophils (%) (Auto) 0.0 0.0-8.0 % Basophils (%) (Auto) 0.2 0.0-5.0 % Neutrophils # (Auto) 13.1 H 1.8-7.7 K/uL Lymphocytes # (Auto) 1.8 1.0-4.8 K/uL Monocytes # (Auto) 1.5 H 0.1-1.0 K/uL Eosinophils # (Auto) 0.00 0.00-0.70 K/uL Basophils # (Auto) 0.04 0.00-0.20 K/uL Absolute Immature Granulocyte (auto 0.13 0-1 K/uL Nucleated Red Blood Cells 0.0 0.0-0.19 % Sodium Level 138 136-145 mmol/L Potassium Level 4.0 3.5-5.1 mmol/L Chloride Level 103 101-111 mmol/L Carbon Dioxide Level 29 21-32 mmol/L Blood Urea Nitrogen 16 7-18 mg/dL Creatinine 1.1 H 0.5-1.0 mg/dL Glomerular Filtration Rate Calc 57 >90 mL/min Random Glucose 226 H 70-105 mg/dL Total Calcium 7.8 L 8.5-10.1 mg/dL Magnesium Level 1.50 L 1.80-2.40 mg/dL Total Bilirubin 0.5 0.2-1.0 mg/dL Aspartate Amino Transf (AST/SGOT) 12 10-37 U/L Alanine Aminotransferase (ALT/SGPT) 12 12-78 U/L Alkaline Phosphatase 90 50-136 U/L Total Protein 6.6 6.0-8.3 g/dL Albumin 2.1 L 3.5-5.0 g/dL Bedside Glucose Comment Notified Nurse Lactic Acid Level 1.4 0.8-2.5 mmol/L C-Reactive Protein, Quantitative 189.00 H 0.5-3.0 mg/L Procalcitonin 0.37 0.05-0.5 ng/mL Test 07/03/24 10:28 07/03/24 08:50 Range/Units Urine Color YELLOW YELLOW Urine Appearance CLOUDY H CLEAR Urine pH 7.0 5.0-8.0 Urine Specific [place] 1.021 1.001-1.031 Urine Protein 50 H NEGATIVE mg/dL Urine Glucose (UA) >=1000 H NEGATIVE mg/dL Urine Ketones 20 H NEGATIVE mg/dL Urine Occult Blood SMALL H NEGATIVE Urine Nitrate 2+ H NEGATIVE Urine Bilirubin NEGATIVE NEGATIVE mg/dL Urine Urobilinogen 4.0 H 0.2-1.0 mg/dL Urine Leukocyte Esterase 500 H NEGATIVE Thomas/uL Urine RBC 11-25 H 0-1 /HPF Urine WBC TNTC H 0-1 /HPF Urine WBC Clumps (Auto) MOD 0-1 /HPF Urine Squamous Epithelial Cells FEW 0-2 /HPF Urine Bacteria MANY None Seen /HPF Urine Hyaline Casts 2-5 H 0-1 /LPF /LPF White Cell Morphology Comment See comments Red Blood Cell Morphology See comments Total Creatine Kinase 46 # 21-232 U/L Troponin I High Sensitivity 4 4-50 ng/L DIAGNOSTICS / RADIOLOGY: PATIENT: RADHA WASSERMAN ACCT: [id number] LOC: [facility] U: [id number] AGE/SX: 63/F ROOM: [facility] RE07/03/[address]: BRANDON STAPLETON MD : 1960 BED: 1 DIS: STATUS: ADM IN TLOC: SPEC: [id number] SUMI: 07/03/24 STATUS: RES REQ: [id number] RECD: 07/04/[address] [facility] [address]: AYANA DELEON MD [place] [facility] [place] 07/04/[address]: EMIGDIO OLMEDO SPDESC: CLEAN CAT ORDERED: AERO ID & SENS Procedure Result Delia Date-Time AEROBIC ID & SENSITIVITIES Preliminary 07/04/24 MRL COLONY DESCRIPTION: DAY 1: COLONY COUNT: >100,000 CFU/ML GRAM NEGATIVE RODS IDENTIFICATION AND SENSITIVITY TO FOLLOW Test(s) performed by: [facility] [address] [place] [address] ASSESSMENT: Urinary tract infection. Abdominal pain. Diabetes mellitus. Morbid obesity. PLAN: Continue on Zosyn. Continue GI prophylaxis. We will follow up on the culture results. Continue pain management. Continue antidiabetics. This case was reviewed and discussed with my supervising physician and the above assessment and plan was formulated and agreed upon. ATTESTATION BY PHYSICIAN I have seen and examined the patient. I reviewed the documentation, medical decision making, and treatment plan as noted by the mid-level provider above. I agree with the findings and plan of care. SHWETHA MENDEZ MD, MIRTA L WOOD TURNER July 04, 2024 12:16
--- NOTE | 2024-07-04 15:40 | NUR ---
ASSISTED BACK FROM CHAIR TO BED. STATES FEELS CHILLS AND SHORT OF BREATH. INSTRUCTED ON DEEP BREATHING, SLOW BREATHS. ORAL TEMP 98.4, WILL CONTINUE TO MONITOR.
[2024-07-05 03:56] LABS: BASOPHILS # (AUTO) 0.04 K/uL (0.00-0.20); BASOPHILS % (AUTO) 0.3 % (0.0-5.0); EOSINOPHILS # (AUTO) 0.03 K/uL (0.00-0.70); EOSINOPHILS % (AUTO) 0.2 % (0.0-8.0); HEMATOCRIT 34.8 % (36-48); LYMPHOCYTES # (AUTO) 2.5 K/uL (1.0-4.8); LYMPHOCYTES % (AUTO) 20.6 % (21.0-51.0); MEAN CORPUSCULAR HEMOGLOBIN 24.5 pg (27.0-33.0); MEAN CORPUSCULAR VOLUME 78.9 fL (79-99); MONOCYTES # (AUTO) 1.5 K/uL (0.1-1.0); MONOCYTES % (AUTO) 12.2 % (3.0-13.0); NEUTROPHILS # (AUTO) 8.1 K/uL (1.8-7.7); NEUTROPHILS % (AUTO) 65.9 % (40.0-77.0); PLATELET COUNT (AUTO) 197 K/uL (130-400); RED BLOOD CELL COUNT(AUTO) 4.41 MIL/uL (4.00-5.50); RED CELL DISTRIBUTION WIDTH 15.9 % (11.0-15.5); WHITE BLOOD COUNT (AUTO) 12.3 K/uL (4.8-10.8)
[2024-07-05 04:15] VITALS: BP 116/79; PULSE 88; RESP 18; TEMP 98
[2024-07-05 04:15] LABS: BILIRUBIN,TOTAL 0.3 mg/dL (0.2-1.0); CREATININE 1.2 mg/dL (0.5-1.0); MAGNESIUM 1.8 mg/dL (1.80-2.40); POTASSIUM 3.7 mmol/L (3.5-5.1); TOTAL PROTEIN, SERUM 6.6 g/dL (6.0-8.3)
[2024-07-05 08:16] VITALS: BP 135/69; PULSE 83; RESP 18; TEMP 99.3
--- NOTE | 2024-07-05 09:12 | PN ---
[facility] PROGRESS NOTE Date of Service: July 05, 2024 Time of Service: 09:02 SUBJECTIVE: [ ] admission date: 07/03/24 PCP: Chris Orellana This is a 63 female that presents in ER with bilateral flank pain associated with fever and chills. Onset three days patient reports having UTI symptoms on Monday burning cessation urgency and frequency. severity: severe state 8/10 on pain scale, aggravating factors: none, alleviating factor: none she reports taking Tylenol for fevers. During the course ER stay sepsis alert was initiated patient received IV fluids and IV V Rocephin. Admitted for Sepsis severe UTI. 07/05/24 patient seen and examined, this morning with low grade temperature 99.3 Gram negative Ecoli in urine: will wait for ID final recommendations. Afebrile over24 hours denied chest pain or shortness for breath. REVIEW OF SYSTEMS A14 point RS was obtained all relevant positive documented otherwise ROS negative PHYSICAL EXAM GENERAL APPEARANCE: The patient is awake, alert, and oriented, in no acute cardiopulmonary distress. NEUROLOGICAL: Cranial nerves II-XII grossly intact. Motor is 5/5 in bilateral upper and lower extremities proximal to distal. No sensory deficits. HEENT: Face is symmetric. Pupils are equal and reactive. Extraocular movements are intact. NECK: Supple. No JVD. No thyromegaly. No submental, submandibular, pre- /postauricular, occipital or supraclavicular lymphadenopathy. CHEST: Normal chest expansion. No Telemetry. LUNGS: Absence of any rales, rhonchi or any wheezing. CARDIOVASCULAR: Regular. S1 and S2 normal. No appreciable rubs, murmurs or gallops. ABDOMEN: Soft, nontender, and nondistended. There is no rebound, voluntary guarding, or rigidity. : Deferred. No [place]. EXTREMITIES: Non-edematous and not cyanotic. No clubbing. Good capillary refill. SKIN: No skin breakdown. Vital Signs (last 8hr) Date Time Temp Pulse Resp B/P (MAP) Pulse Ox O2 Delivery O2 Flow Rate FiO2 07/05/24 08:16 99.3 83 18 135/69 94 Room Air 07/05/24 04:15 98.1 88 18 116/79 99 Nasal Cannula LABS: Laboratory: Test 07/05/24 05:30 07/05/24 03:22 07/03/24 16:32 07/03/24 11:36 Range/Units Whole Blood Glucose 203 H 70-110 MG/DL White Blood Count 12.3 #H 4.8-10.8 K/uL Red Blood Count 4.41 4.00-5.50 MIL/uL Hemoglobin 10.8 L 12.0-16.0 g/dL Hematocrit 34.8 L 36-48 % Mean Corpuscular Volume 78.9 L 79-99 fL Mean Corpuscular Hemoglobin 24.5 L 27.0-33.0 pg Mean Corpuscular Hemoglobin Concent 31.0 L 32.0-36.0 g/dL Red Cell Distribution Width 15.9 H 11.0-15.5 % Platelet Count 197 130-400 K/uL Mean Platelet Volume 11.4 H 7.5-10.5 fL Immature Granulocyte % (Auto) 0.8 0-1 % Neutrophils (%) (Auto) 65.9 40.0-77.0 % Lymphocytes (%) (Auto) 20.6 L 21.0-51.0 % Monocytes (%) (Auto) 12.2 3.0-13.0 % Eosinophils (%) (Auto) 0.2 0.0-8.0 % Basophils (%) (Auto) 0.3 0.0-5.0 % Neutrophils # (Auto) 8.1 H 1.8-7.7 K/uL Lymphocytes # (Auto) 2.5 1.0-4.8 K/uL Monocytes # (Auto) 1.5 H 0.1-1.0 K/uL Eosinophils # (Auto) 0.03 0.00-0.70 K/uL Basophils # (Auto) 0.04 0.00-0.20 K/uL Absolute Immature Granulocyte (auto 0.10 0-1 K/uL Nucleated Red Blood Cells 0.0 0.0-0.19 % Sodium Level 140 136-145 mmol/L Potassium Level 3.7 3.5-5.1 mmol/L Chloride Level 104 101-111 mmol/L Carbon Dioxide Level 29 21-32 mmol/L Blood Urea Nitrogen 16 7-18 mg/dL Creatinine 1.2 H 0.5-1.0 mg/dL Glomerular Filtration Rate Calc 52 >90 mL/min Random Glucose 212 H 70-105 mg/dL Total Calcium 8.0 L 8.5-10.1 mg/dL Magnesium Level 1.80 1.80-2.40 mg/dL Total Bilirubin 0.3 # 0.2-1.0 mg/dL Aspartate Amino Transf (AST/SGOT) 15 10-37 U/L Alanine Aminotransferase (ALT/SGPT) 14 12-78 U/L Alkaline Phosphatase 91 50-136 U/L Total Protein 6.6 6.0-8.3 g/dL Albumin 2.0 L 3.5-5.0 g/dL Bedside Glucose Comment Notified Nurse Lactic Acid Level 1.4 0.8-2.5 mmol/L C-Reactive Protein, Quantitative 189.00 H 0.5-3.0 mg/L Procalcitonin 0.37 0.05-0.5 ng/mL Test 07/03/24 10:28 Range/Units Urine Color YELLOW YELLOW Urine Appearance CLOUDY H CLEAR Urine pH 7.0 5.0-8.0 Urine Specific [place] 1.021 1.001-1.031 Urine Protein 50 H NEGATIVE mg/dL Urine Glucose (UA) >=1000 H NEGATIVE mg/dL Urine Ketones 20 H NEGATIVE mg/dL Urine Occult Blood SMALL H NEGATIVE Urine Nitrate 2+ H NEGATIVE Urine Bilirubin NEGATIVE NEGATIVE mg/dL Urine Urobilinogen 4.0 H 0.2-1.0 mg/dL Urine Leukocyte Esterase 500 H NEGATIVE Thomas/uL Urine RBC 11-25 H 0-1 /HPF Urine WBC TNTC H 0-1 /HPF Urine WBC Clumps (Auto) MOD 0-1 /HPF Urine Squamous Epithelial Cells FEW 0-2 /HPF Urine Bacteria MANY None Seen /HPF Urine Hyaline Casts 2-5 H 0-1 /LPF /LPF Current Medications Medications (Trade) Dose Ordered Sig/Rich Route PRN Reason Start Time Stop Time Status Last Admin Dose Admin Acetaminophen (TYLenol 325MG TAB) 650 mg Q4H PRN PO TEMPERATURE GREATER THAN 101.5 07/03/24 11:30 08/02/24 11:29 07/04/24 20:21 650 MG Famotidine (Pepcid 20mg Tab) 20 mg DAILY PO 07/04/24 09:00 08/03/24 08:59 07/04/24 10:02 20 MG Hydralazine HCl (APRESOLine 20MG INJ) 5 mg Q4H PRN IV ADMINISTER FOR SBP > 160 07/03/24 11:30 08/02/24 11:29 Insulin Human Regular (humuLIN R 100 UNIT/ML 3ML) INSULIN SLIDING SCAL... ACHS SQ 07/03/24 11:30 08/02/24 11:29 07/05/24 06:20 6 UNIT Magnesium Sulfate 50 ml @ 0 mls/hr PROTOCOL PRN IV low mag level 07/03/24 11:30 08/02/24 11:29 07/05/24 06:20 25 MLS/HR Ondansetron HCl (zoFRAN 4MG INJ) 4 mg Q6H PRN IVP NAUSEA/VOMITING 07/03/24 11:30 08/02/24 11:29 07/04/24 00:06 4 MG Piperacillin Sod/ Tazobactam Sod (Zosyn 3.375gm+NS 50ml) 3.375 gm Q8H IVPB 07/03/24 12:00 07/13/24 11:59 07/05/24 04:41 3.375 GM Potassium Chloride 100 ml @ 100 mls/hr AD PRN IV POTASSIUM PROTOCOL 07/03/24 11:30 08/02/24 11:29 Potassium Chloride (K-Dur/Klor-Con 20meq) 20 meq AD PRN PO POTASSIUM PROTOCOL 07/03/24 11:30 08/02/24 11:29 Potassium Chloride (KCl 10% Elixir 20meq/15ml) 20 meq AD PRN PO POTASSIUM PROTOCOL 07/03/24 11:30 08/02/24 11:29 Sodium Chloride 1,000 ml @ 75 mls/hr [id number] IV 07/03/24 11:30 08/02/24 11:29 07/04/24 13:57 75 MLS/HR Sodium Chloride (NS 50ml) 50 ml AD IV 07/03/24 12:00 07/03/24 13:38 DC DIAGNOSTICS / RADIOLOGY: [ ] ASSESSMENT: sepsis ( Temp:101.7, HR: 110 RR 22, Lactic acid: 2.8 WBC: 18) complicated UTI gram negative ECOLI POA intractable bilateral flank pain POA Adult Morbid obesity POA DM with Hyperglycemia POA electrolytes derangement: hyponatremia, POA MARC: ATN POA PLAN: Admit: PCCU condition:Guarded Status: full code IVF:NA at 75 ml/hr Consultants: Infectious Disease for Abt stewardship recommendations Antibiotics:Zosyn 3.375gm IV every 8 hrs Test: sepsis work up: urine culture' gram negative ecoli, blood cultures so far negative Labs cbc, cmp, mag+ ac/hs monitoring with SSRI coverage and long acting Lantus 25 unit subq daily: goal to keep blood sugars below 200 Replace electrolytes as needed as per protocol to keep potassium above 4.0 magnesium 2.0. Home medications reconciled Supportive measures: DVT ppx, GI ppx all questions answered time spent: > 35 min Supervising MD: Dr. Chan P. c/d This document was generated in part using voice recognition software, occasional wrong word or sound alike substitutions may have occurred due to the inherent limitations of voice recognition software. Read the chart carefully and recognize using context, where the substitutions have occurred. Although every effort was made to edit the content, element burner and typing errors may occur ATTESTATION BY PHYSICIAN I have seen and examined the patient. I reviewed the documentation, medical decision making, and treatment plan as noted by the mid-level provider above. I agree with the findings and plan of care. Martina Benavides MD, [facility] NP July 05, 2024 09:12
[2024-07-05 10:02] VITALS: TEMP 98.7
--- NOTE | 2024-07-05 12:13 | PN ---
[facility] PROGRESS NOTE Date of Service: July 05, 2024 Time of Service: 12:12 SUBJECTIVE: [ ] admission date: 07/03/24 PCP: Chris Orellana This is a 63 female that presents in ER with bilateral flank pain associated with fever and chills. Onset three days patient reports having UTI symptoms on Monday burning cessation urgency and frequency. severity: severe state 8/10 on pain scale, aggravating factors: none, alleviating factor: none she reports taking Tylenol for fevers. During the course ER stay sepsis alert was initiated patient received IV fluids and IV V Rocephin. Admitted for Sepsis severe UTI. late entry: date of services: 07/04/24 patient is seen and examined patient has had fevers overnight T-max 102.9�. This morning low-grade 99.9. Cultures growing Gram-negative rods. ID on board patient denied chest pain or shortness for breath. REVIEW OF SYSTEMS A14 point RS was obtained all relevant positive documented otherwise ROS negative PHYSICAL EXAM GENERAL APPEARANCE: The patient is awake, alert, and oriented, in no acute cardiopulmonary distress. NEUROLOGICAL: Cranial nerves II-XII grossly intact. Motor is 5/5 in bilateral upper and lower extremities proximal to distal. No sensory deficits. HEENT: Face is symmetric. Pupils are equal and reactive. Extraocular movements are intact. NECK: Supple. No JVD. No thyromegaly. No submental, submandibular, pre- /postauricular, occipital or supraclavicular lymphadenopathy. CHEST: Normal chest expansion. No Telemetry. LUNGS: Absence of any rales, rhonchi or any wheezing. CARDIOVASCULAR: Regular. S1 and S2 normal. No appreciable rubs, murmurs or gallops. ABDOMEN: Soft, nontender, and nondistended. There is no rebound, voluntary guarding, or rigidity. : Deferred. No [place]. EXTREMITIES: Non-edematous and not cyanotic. No clubbing. Good capillary refill. SKIN: No skin breakdown. Vital Signs (last 8hr) Date Time Temp Pulse Resp B/P (MAP) Pulse Ox O2 Delivery O2 Flow Rate FiO2 07/05/24 08:16 99.3 83 18 135/69 94 Room Air 07/05/24 04:15 98.1 88 18 116/79 99 Nasal Cannula LABS: Laboratory: Test 07/05/24 11:16 07/05/24 03:22 07/03/24 16:32 Range/Units Whole Blood Glucose 269 H 70-110 MG/DL White Blood Count 12.3 #H 4.8-10.8 K/uL Red Blood Count 4.41 4.00-5.50 MIL/uL Hemoglobin 10.8 L 12.0-16.0 g/dL Hematocrit 34.8 L 36-48 % Mean Corpuscular Volume 78.9 L 79-99 fL Mean Corpuscular Hemoglobin 24.5 L 27.0-33.0 pg Mean Corpuscular Hemoglobin Concent 31.0 L 32.0-36.0 g/dL Red Cell Distribution Width 15.9 H 11.0-15.5 % Platelet Count 197 130-400 K/uL Mean Platelet Volume 11.4 H 7.5-10.5 fL Immature Granulocyte % (Auto) 0.8 0-1 % Neutrophils (%) (Auto) 65.9 40.0-77.0 % Lymphocytes (%) (Auto) 20.6 L 21.0-51.0 % Monocytes (%) (Auto) 12.2 3.0-13.0 % Eosinophils (%) (Auto) 0.2 0.0-8.0 % Basophils (%) (Auto) 0.3 0.0-5.0 % Neutrophils # (Auto) 8.1 H 1.8-7.7 K/uL Lymphocytes # (Auto) 2.5 1.0-4.8 K/uL Monocytes # (Auto) 1.5 H 0.1-1.0 K/uL Eosinophils # (Auto) 0.03 0.00-0.70 K/uL Basophils # (Auto) 0.04 0.00-0.20 K/uL Absolute Immature Granulocyte (auto 0.10 0-1 K/uL Nucleated Red Blood Cells 0.0 0.0-0.19 % Sodium Level 140 136-145 mmol/L Potassium Level 3.7 3.5-5.1 mmol/L Chloride Level 104 101-111 mmol/L Carbon Dioxide Level 29 21-32 mmol/L Blood Urea Nitrogen 16 7-18 mg/dL Creatinine 1.2 H 0.5-1.0 mg/dL Glomerular Filtration Rate Calc 52 >90 mL/min Random Glucose 212 H 70-105 mg/dL Total Calcium 8.0 L 8.5-10.1 mg/dL Magnesium Level 1.80 1.80-2.40 mg/dL Total Bilirubin 0.3 # 0.2-1.0 mg/dL Aspartate Amino Transf (AST/SGOT) 15 10-37 U/L Alanine Aminotransferase (ALT/SGPT) 14 12-78 U/L Alkaline Phosphatase 91 50-136 U/L Total Protein 6.6 6.0-8.3 g/dL Albumin 2.0 L 3.5-5.0 g/dL Bedside Glucose Comment Notified Nurse Current Medications Medications (Trade) Dose Ordered Sig/Rich Route PRN Reason Start Time Stop Time Status Last Admin Dose Admin Acetaminophen (TYLenol 325MG TAB) 650 mg Q4H PRN PO TEMPERATURE GREATER THAN 101.5 07/03/24 11:30 08/02/24 11:29 07/05/24 09:02 650 MG Dicyclomine HCl (Bentyl 20mg Tab) 10 mg TID PO 07/05/24 14:00 08/04/24 13:59 Famotidine (Pepcid 20mg Tab) 20 mg DAILY PO 07/04/24 09:00 08/03/24 08:59 07/05/24 08:59 20 MG Home Med (Home Medication) SYMBICORT 80-4.5MCG INH BID IH 07/05/24 21:00 08/04/24 20:59 Hydralazine HCl (APRESOLine 20MG INJ) 5 mg Q4H PRN IV ADMINISTER FOR SBP > 160 07/03/24 11:30 08/02/24 11:29 Insulin Glargine (LANtus 100 UNITS/ML 10 ML VIAL) 25 units DAILY SQ 07/06/24 10:00 08/05/24 09:59 Insulin Human Regular (humuLIN R 100 UNIT/ML 3ML) INSULIN SLIDING SCAL... ACHS SQ 07/03/24 11:30 08/02/24 11:29 07/05/24 06:20 6 UNIT Magnesium Sulfate 50 ml @ 0 mls/hr PROTOCOL PRN IV low mag level 07/03/24 11:30 08/02/24 11:29 07/05/24 06:20 25 MLS/HR Ondansetron HCl (zoFRAN 4MG INJ) 4 mg Q6H PRN IVP NAUSEA/VOMITING 07/03/24 11:30 08/02/24 11:29 07/04/24 00:06 4 MG Piperacillin Sod/ Tazobactam Sod (Zosyn 3.375gm+NS 50ml) 3.375 gm Q8H IVPB 07/03/24 12:00 07/13/24 11:59 07/05/24 04:41 3.375 GM Potassium Chloride 100 ml @ 100 mls/hr AD PRN IV POTASSIUM PROTOCOL 07/03/24 11:30 08/02/24 11:29 Potassium Chloride (K-Dur/Klor-Con 20meq) 20 meq AD PRN PO POTASSIUM PROTOCOL 07/03/24 11:30 08/02/24 11:29 Potassium Chloride (KCl 10% Elixir 20meq/15ml) 20 meq AD PRN PO POTASSIUM PROTOCOL 07/03/24 11:30 08/02/24 11:29 Sodium Chloride 1,000 ml @ 75 mls/hr [id number] IV 07/03/24 11:30 08/02/24 11:29 07/04/24 13:57 75 MLS/HR Sodium Chloride (NS 50ml) 50 ml AD IV 07/03/24 12:00 07/03/24 13:38 DC DIAGNOSTICS / RADIOLOGY: [ ] ASSESSMENT: sepsis ( Temp:101.7, HR: 110 RR 22, Lactic acid: 2.8 WBC: 18) complicated UTI gram negative ECOLI POA intractable bilateral flank pain POA Adult Morbid obesity POA DM with Hyperglycemia POA electrolytes derangement: hyponatremia, POA MARC: ATN POA PLAN: Admit: PCCU condition:Guarded Status: full code IVF:NA at 75 ml/hr Consultants: Infectious Disease for Abt stewardship recommendations Antibiotics:Zosyn 3.375gm IV every 8 hrs Test: sepsis work up: urine culture' gram negative pending final report blood cultures so far negative Labs cbc, cmp, mag+ ac/hs monitoring with SSRI coverage and long acting Lantus 25 unit subq daily: goal to keep blood sugars below 200 Replace electrolytes as needed as per protocol to keep potassium above 4.0 magnesium 2.0. Home medications reconciled Supportive measures: DVT ppx, GI ppx all questions answered time spent: > 35 min Supervising MD: Dr. Chan P. c/d This document was generated in part using voice recognition software, occasional wrong word or sound alike substitutions may have occurred due to the inherent limitations of voice recognition software. Read the chart carefully and recognize using context, where the substitutions have occurred. Although every effort was made to edit the content, adapted physical education aide and typing errors may occur ATTESTATION BY PHYSICIAN I have seen and examined the patient. I reviewed the documentation, medical decision making, and treatment plan as noted by the mid-level provider above. I agree with the findings and plan of care. Martina Benavides MD, [facility]ABETH NP July 05, 2024 12:13
[2024-07-05 12:28] VITALS: BP 121/73; PULSE 81; RESP 18; TEMP 98.5
--- NOTE | 2024-07-05 14:11 | DS ---
Discharge Summary Hospital Course Summary: admission date: 07/03/24 PCP: Chris Orellana This is a 63 female that presents in ER with bilateral flank pain associated with fever and chills. Onset three days patient reports having UTI symptoms on Monday burning cessation urgency and frequency. severity: severe state 8/10 on pain scale, aggravating factors: none, alleviating factor: none she reports taking Tylenol for fevers. During the course ER stay sepsis alert was initiated patient received IV fluids and IV V Rocephin. Admitted for Sepsis severe UTI. late entry: date of services: 07/04/24 patient is seen and examined patient has had fevers overnight T-max 102.9�. This morning low-grade 99.9. Cultures gr owing Gram-negative rods. ID on board patient denied chest pain or shortness for breath. 07/05/24 patient seen and examined, Gram negative Ecoli in urine: will wait for ID final recommendations. Afebrile over24 hours denied chest pain or shortness for breath. the patient will be discharged today: cleared by ID: written prescription per ID: oral antibiotics Vantin 200 mg po bid for 10 days patient is hemodynamically stable for discharge. We will follow-up with PCP 2-3 days. 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 Findings: No evidence of nephro or ureterolithiasis is found. No hydronephrosis or ureteral dilatation is seen. Simple cyst left kidney. The lung bases are clear. The stomach is unremarkable. It shows no wall thickening. No gross ulceration is seen. It is not overly distended. There are no surrounding inflammatory changes. No wall lesions are identified to suggest cancer. The spleen is unremarkable. It is not enlarged. The pancreas shows normal anatomy. It is not fatty replaced. It shows no lesions. The pancreatic duct is not dilated. The gallbladder is unremarkable. It shows no cholelithiasis. The gallbladder wall is normal in thickness. There is no pericholecystic fluid. The is no acute or chronic inflammation noted. The adrenal glands are unremarkable. There is no enlargement. No lesions are noted. The liver is unremarkable. It shows no focal masses. The appendix is unremarkable. It shows no evidence of inflammation. No appendicolith is seen. The small bowel is unremarkable. There is no evidence of dilatation to suggest obstruction. No evidence of adynamic ileus is seen. There is no small bowel wall thickening to suggest enteritis. There is diverticulosis. There is no evidence of acute inflammation to suggest diverticulitis. The colon is otherwise unremarkable. The urinary bladder is unremarkable. There is no wall thickening to suggest tumor or inflammation. There are no intraluminal calculi. There are no diverticula. There is no evidence of chronic bladder outlet obstruction. There is no evidence of urinary bladder distention to suggest urinary retention. The other pelvic structures are unremarkable. The bony and vascular structures are unremarkable for the patient's age. IMPRESSION: NEGATIVE CT SCAN OF THE ABDOMEN AND PELVIS. NO RENAL STONES. NO ACUTE PATHOLOGY OR INFLAMMATION SEEN. Procedure(s): RUN DATE: 07/05/24 [facility] [address] RUN TIME: [phone] [place] [address] Department of Laboratories [facility] # [id number] Radio Division Captain: Denzel Virgen DO Specimen Report PATIENT: RADHA WASSERMAN ACCT: [id number] LOC: [facility] U: [id number] AGE/SX: 63/F ROOM: 221 RE07/03/[address]: BRANDON STAPLETON MD : 1960 BED: 1 DIS: STATUS: ADM IN TLOC: SPEC: [id number] SUMI: 07/03/24 STATUS: YAA REQ: [id number] RECD: 07/04/[address]: AYANA DELEON MD SOURCE: [facility] [place] ENTR: 07/04/[address]: [facility] CLEAN CAT ORDERED: AERO ID & SENS Procedure Result Delia Date-Time AEROBIC ID & SENSITIVITIES Final 07/05/24 [facility] COLONY DESCRIPTION: DAY 1: COLONY COUNT: >100,000 CFU/ML GRAM NEGATIVE RODS IDENTIFICATION AND SENSITIVITY TO FOLLOW ESCHERICHIA COLI E COLI M.I.C. RX --------- ---- AMPICILLIN >16 R AZTREONAM <=4 S CEFAZOLIN >16 R CEFTAZIDIME/AVIBACTAM <=8 S CEFTRIAXONE <=1 S GENTAMICIN <=2 S LEVOFLOXACIN <=0.5 S NITROFURANTOIN <=32 S MEROPENEM <=1 S PIPERACILLIN/TAZOBACTAM <=8 S TRIMETHOPRIM/SUFLAMETHOXAZOLE >2/38 R @ [facility] Test Performed at: [facility] [address], [place], [place] Medical Library Director: Pepito Mahoney D.O. RUN DATE: 07/05/24 [facility] [address] RUN TIME: [address] [address] Department of Laboratories CLIA # [id number] Radio Division Captain: Denzel Virgen DO Specimen Report PATIENT: RADHA WASSERMAN ACCT: [id number] LOC: [facility] U: [id number] AGE/SX: 63/F ROOM: 221 RE07/03/[address]: BRANDON STAPLETON MD : 1960 BED: 1 DIS: STATUS: ADM IN TLOC: SPEC: [id number] SUMI: 07/03/24 STATUS: RES REQ: [id number] RECD: 07/03/[address]: AYANA DELEON MD SOURCE: BLOOD ENTR: 07/03/[address] [facility] DR: EMIGDIO OLMEDO [facility]: ORDERED: BLOOD CULTURE COMMENTS: What is the Source? BLOOD Procedure Result Delia Date-Time BLOOD CULT Preliminary 07/05/24 NO GROWTH AFTER 48 HOURS RUN DATE: 07/05/24 [facility] [address] RUN TIME: [address] [address] Department of Laboratories [place] # [id number] Radio Division Captain: Denzel Virgen DO Specimen Report PATIENT: RADHA WASSERMAN ACCT: [id number] LOC: [facility] U: [id number] AGE/SX: 63/F ROOM: 221 RE07/03/[address]: BRANDON STAPLETON MD : 1960 BED: 1 DIS: STATUS: ADM IN TLOC: SPEC: [id number] SUMI: 07/03/24 STATUS: RES REQ: [id number] RECD: 07/03/[address]: AYANA DELEON MD SOURCE: BLOOD ENTR: 07/03/[address] [facility] [address]: EMIGDIO OL[facility]: ORDERED: BLOOD CULTURE COMMENTS: What is the Source? BLOOD Procedure Result Delia Date-Time BLOOD CULT Preliminary 07/05/24 NO GROWTH AFTER 48 HOURS END OF REPORT Assessment/Plan: Discharged dx's; sepsis ( Temp:101.7, HR: 110 RR 22, Lactic acid: 2.8 WBC: 18) complicated UTI gram negative ECOLI POA intractable bilateral flank pain POA resolved Adult Morbid obesity POA discussed weight management DM with Hyperglycemia POA will continue with home regiment. 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 FOLLOW UP APPOINTMENT(S): PCP Simone Orellana 2-3 days PROCEDURES: none IMAGING (S) report attached to summary : CT abd/pelvis MICROBIOLOGY: report attached to summary; urine cultures and blood cultures ACTIVITY: ab jeane HOME MEDICATIONS remain the same CHANGES ON HOME MEDICATIONS none NEW MEDICATIONS oral antibiotics written prescription as directed per ID TEACHING: side effects and adverse reactions of medications weight management: modified diet and exercise Emergency instructions: The patient was instructed to present to the nearest Emergency Department or call 911 should their symptoms return or worsen. Home Medications: Reported Medications Insulin Degludec (Tresiba) 100 Unit/Ml Vial, 60 UNIT SQ DAILY, VIAL 07/04/24 Dicyclomine HCl (Bentyl) 10 Mg Cap, 1 CAP PO TID for irritable bowel symptoms for 30 Days, #90 CAP 0 Refills 07/04/24 Pioglitazone HCl (Actos) 30 Mg Tablet, 1 TAB PO DAILY for 30 Days, #30 TAB 0 R efills 07/04/24 Budesonide/Formoterol Fumarate (Symbicort 80-4.5 Mcg Inhaler) 80 Mcg-4.5 Mcg/Actuation Inhr, 2 PUFF IH BID, GM 0 Refills 07/04/24 Dulaglutide (Trulicity) 3 Mg/0.5 Ml Pen.injctr, 3 MG SQ QWEEK 07/04/24 Discontinued Reported Medications [Novolog] No Conflict Check, SQ 11/18/21 [Levemir] No Conflict Check, SQ 11/18/21 [Janumet] No Conflict Check, PO 11/18/21 Aspirin (ASPIRIN 81 MG ECTAB) 81 Mg Ectab, 81 MG PO DAILY, TAB.EC 11/18/21 [Lisinopril] No Conflict Check, PO 11/18/21 Montelukast Sodium (Singulair) 10 Mg Tablet, 10 MG PO DAILY, TAB 04/22/16 Sertraline HCl (Zoloft) 100 Mg Tablet, 100 MG PO DAILY, TAB 04/22/16 Atorvastatin Calcium (LIPITOR) 40 Mg Tablet, 40 MG PO AM, TAB 04/22/16 Omeprazole Magnesium (Prilosec Otc) 20 Mg Tablet.dr, 20 MG PO DAILY, TAB 04/22/16 Insulin Aspart (Novolog) 100 Units/Ml Inj, 20 UNITS SQ BID, ML 04/22/16 Glyburide (Glyburide) 5 Mg Tablet, 5 MG PO BID, TAB 04/22/16 Metformin HCl (Metformin HCl) 1,000 Mg Tablet, 1000 MG PO BID, TAB 04/22/16 Discontinued Scripts Ibuprofen (Motrin/Advil) 800 Mg Tab, 800 MG PO TIDP PRN for PAIN, #30 TAB Prov:SWATI MUJICA MD 11/18/21 Continued Medications: Budesonide/Formoterol Fumarate (Symbicort 80-4.5 Mcg Inhaler) 80 Mcg-4.5 Mcg/Actuation Inhr 2 PUFF IH BID, GM 0 Refills Dicyclomine HCl (Bentyl) 10 Mg Cap 1 CAP PO TID for irritable bowel symptoms for 30 Days, #90 CAP 0 Refills Dulaglutide (Trulicity) 3 Mg/0.5 Ml Pen.injctr 3 MG SQ QWEEK Insulin Degludec (Tresiba) 100 Unit/Ml Vial 60 UNIT SQ DAILY, VIAL Pioglitazone HCl (Actos) 30 Mg Tablet 1 TAB PO DAILY for 30 Days, #30 TAB 0 Refills Time spent arranging discharge: 31-60 minutes ATTESTATION BY PHYSICIAN I have seen and examined the patient. I reviewed the documentation, medical decision making, and treatment plan as noted by the mid-level provider above. I agree with the findings and plan of care. Martina Benavides MD, ELIZABETH NP July 05, 2024 14:11
[2024-07-05] MEDS: DICYCLOMINE HCL 20 MG TAB PO SCH (14:46)
--- NOTE | 2024-07-05 17:25 | NUR ---
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
[2024-07-05 17:40] VITALS: BP 105/57; PULSE 79; RESP 18; TEMP 98.4
[2024-07-05] MEDS ORDERED: SYMBICORT IH SCH (21:00)
--- NOTE | 2024-07-05 21:29 | PN ---
INFECTIOUS DISEASE FOLLOWUP NOTE DATE OF SERVICE: 07/05/2024. SUBJECTIVE: An elderly female who is seen and examined at bedside today. No fever or chills. No nausea or vomiting. Dysuria and urinary frequency are resolved. No cough. No shortness of breath. No palpitations or orthopnea. . No suicidal ideations. PHYSICAL EXAMINATION: . EYES: No icterus. Pupils equal and reactive. HENT: No oral thrush seen. Moist oral mucosa. NECK: Supple. No JVD or thyromegaly. LUNGS: Good air entry. No rales. No rhonchi. CARDIOVASCULAR: S1, S2, regular. No murmur heard. ABDOMEN: Obese, soft, nontender. Bowel sound is present. CENTRAL NERVOUS SYSTEM: Awake, alert, oriented x 3. No focal deficits. SKIN: No rashes. No itchiness. LYMPHATIC: No peripheral lymphadenopathy. BACK: No deformity. No pressure ulcer. MUSCULOSKELETAL: No joint swelling, erythema, or tenderness. LABORATORY DATA: WBC 12.2, hemoglobin 10.8, platelets 197. Urine culture grew E. coli. Blood culture: No growth for 2 days. ASSESSMENT: A 63-year-old female presenting with urinary symptoms, fever, and chills. CURRENT PROBLEMS: Include: * Gram-negative sepsis. * UTI. * Morbid obesity. * Diabetes mellitus. * Hypertension. PLAN: * Continue Zosyn. * Continue pain management. * Continue antidiabetic. * Continue nutritional support. * Continue GI prophylaxis. * Monitor electrolytes. * The patient will be given Bactrim upon discharge. TID: [id number] RECEIPT: [id number]
[2024-07-06] MEDS ORDERED: INSULIN GLARgine 100 UNITS/ML 10 ML VIAL SQ SCH (10:00)
== END 2024-07-05 18:35 | disposition home or self-care (01) | DRG 871 ==
LOC: EDH 08:22 → EDHIP 11:17 → 2DH 18:17
PROVIDERS: ADMIT Internal Medicine; ATTEND Internal Medicine
DX: A41.50 Gram-negative sepsis, unspecified (principal); N17.0 Acute kidney failure with tubular necrosis; N39.0 Urinary tract infection, site not specified; E87.1 Hypo-osmolality and hyponatremia; Z68.43 Body mass index [BMI] 50.0-59.9, adult; R65.20 Severe sepsis without septic shock; E11.65 Type 2 diabetes mellitus with hyperglycemia; I10 Essential (primary) hypertension; E66.01 Morbid (severe) obesity due to excess calories; Z79.4 Long term (current) use of insulin; Z82.49 Family history of ischemic heart disease and other diseases of the circulatory system; Z83.3 Family history of diabetes mellitus; Z87.442 Personal history of urinary calculi; Z90.710 Acquired absence of both cervix and uterus
CPT/HCPCS: 36415; 74176; 80048; 80053; 81001; 82550; 82948; 83605; 83735; 84145; 84484; 85025; 86140; 87040; 87086; 87186; 99285; G0378; J0696; J1815; J1885; J2405; J2543; J3475